=== PATIENT | male | born 1985 | race African-American/Black ===

== ENCOUNTER 2017-07-10 18:26 | Emergency (ER) | payer SELFPAY ==
[~2017-07-10] VITALS: Ht 172.7 cm; Wt 77.3 kg
[2017-07-10 18:38] VITALS: TEMP 98.8
[2017-07-10 22:03] LABS: COLLECTION METHOD CLEAN CATCH
[2017-07-10 22:10] LABS: MUCOUS Present /lpf; PH 6 (5-8); SQUAMOUS EPITHELIAL None Seen /hpf; URINE APPEARANCE Clear; URINE BACTERIA Rare /hpf; URINE BILIRUBIN Negative (NEGATIVE); URINE BLOOD 1+ (NEGATIVE); URINE COLOR Yellow; URINE GLUCOSE Negative (NEGATIVE); URINE KETONE Negative (NEGATIVE); URINE LEUKOCYTE ESTERASE Negative (NEGATIVE); URINE NITRATE Negative (NEGATIVE); URINE PROTEIN(semi-quant) Negative (NEGATIVE); URINE UROBILINOGEN Negative (NEGATIVE)
[2017-07-10] MEDS ORDERED: DOXYCYCLINE 10100 MG PO (23:15)
[2017-07-10] MEDS ORDERED: VALTREX1 GM PO (23:15)
[2017-07-11 00:15] VITALS: BP 131/75; PULSE 68
== END 2017-07-11 00:18 | disposition home or self-care (01) ==
LOC: COL.ER 18:26
PROVIDERS: Emergency Medicine
DX: A60.01 Herpesviral infection of penis (principal)